=== PATIENT | male | born 1950 ===

== ENCOUNTER 2017-09-09 05:32 | Inpatient (IN) ==
[2017-09-02 09:42] LABS: Basophils # 0.1 10*3/uL (0.0-0.2); Basophils % 0.8 % (0.0-0.8); Eosinophils # 0.1 10*3/uL (0.0-0.87); Eosinophils % 1.9 % (0.00-10.9); Hematocrit 43.5 VOL% (42.0-52.0); Hemoglobin 14.8 GM/DL (14.0-18.0); Immature Granulocytes % 0.3 %; Immature Granulocytes Absolute 0.02 #; Lymphocytes # 2.4 10*3/uL (1.4-4.0); Lymphocytes % 32.7 % (21.2-54.2); Mean Corpuscular Hemoglobin 29 PG (27-34); Mean Platelet Volume 10.7 FL (9.6-12.0); Monocytes # 0.7 10*3/uL (0.11-0.8); Monocytes % 9.7 % (1.7-12.7); Neutrophils % 54.6 % (38.7-73.9); Platelet Count 263 T/CUMM (130-400); Red Blood Count 5.18 MC/CUMM (3.8-5.5); Red Cell Distribution Width 13.4 % (9.3-17.3); White Blood Count 7.3 T/CUMM (4-12)
[2017-09-02 10:34] LABS: Calcium 8.8 MG/DL (8.5-10.1); Osmolality,Calculated 276.5 MOS/KG (273-304); Potassium 4.5 MMOL/L (3.5-5.1)
[2017-09-02 10:41] LABS: Apearance,Urine CLEAR (Clear); Bilirubin,Urine Negative (Negative); Blood, Urine Negative (Negative); Glucose,Urine (UA) Negative (Negative); Ketones,Urine Negative (Negative); Nitrite,Urine Negative (Negative); Protein,Urine Negative; RBC,Urine <1 /HPF (0-4); Urine Color Straw (Yellow); Urine Specific Gravity 1.004 (1.001-1.035); Urine Urobilinogen < 2.0 EU/DL (0.2-1.0); WBC,Urine <1 /HPF (0-6)
[2017-09-09] MEDS ORDERED: SODIUM PHOSPHATE ENEMA 133 ML BOTTLE RECTAL ONE ×2 (05:58→06:00)
[2017-09-09] MEDS ORDERED: cefTRIAXone 1,000 MG VIAL ONE (05:58)
[2017-09-09] MEDS ORDERED: ALVIMOPAN 12 MG CAPSULE ONE (05:58)
[2017-09-09] MEDS ORDERED: ALVIMOPAN 12 MG CAPSULE PO ONE (06:00)
[2017-09-09] MEDS ORDERED: cefTRIAXone 1,000 MG in SYRINGE 1 EACH IV ONE (06:00)
[2017-09-09] MEDS: LACTATED RINGERS 1,000 ML IV SCH ×4 (06:33→11:30)
[2017-09-09] MEDS ORDERED: PROPOFOL 200 MG/20 ML VIAL IV ONE ×2 (07:10→11:59)
[2017-09-09] MEDS ORDERED: DEXAMETHASONE 10 MG/1 ML VIAL ONE (07:10)
[2017-09-09] MEDS ORDERED: GLYCOPYRROLATE 0.4 MG/2 ML VIAL ONE ×3 (07:10→12:00)
[2017-09-09] MEDS ORDERED: KETOROLAC 30 MG/1 ML VIAL ONE ×2 (07:10→12:00)
[2017-09-09] MEDS ORDERED: ROCURONIUM 100 MG/10 ML VIAL IV ONE ×2 (07:10→12:01)
[2017-09-09] MEDS ORDERED: LIDOCAINE 2% 5 ML VIAL ONE (07:10)
[2017-09-09] MEDS ORDERED: PHENYLEPHRINE 1 MG/10 ML SYRINGE IV ONE (07:10)
[2017-09-09] MEDS ORDERED: NEOSTIGMINE 10 MG/10 ML VIAL ONE ×2 (07:10→12:01)
[2017-09-09] MEDS ORDERED: ONDANSETRON 4 MG/2 ML VIAL ONE (07:10)
[2017-09-09 08:18] LABS: Apearance,Urine CLEAR (Clear); Bacteria,Urine Occasional /HPF (Few); Bilirubin,Urine Negative (Negative); Blood, Urine Small mg/dL (Negative); Glucose,Urine (UA) Negative (Negative); Ketones,Urine Negative (Negative); Mucus,Urine Occasional /LPF (Occasional); Nitrite,Urine Negative (Negative); Protein,Urine Negative; RBC,Urine 25 /HPF (0-4); Squamous Epithelial Cell,Urine Occasional /HPF (0-10); Urine Color Yellow (Yellow); Urine Specific Gravity 1.009 (1.001-1.035); Urine Urobilinogen < 2.0 EU/DL (0.2-1.0); WBC,Urine 3 /HPF (0-6)
[2017-09-09] MEDS ORDERED: ONDANSETRON 4 MG/2 ML VIAL IV PRN (11:33)
[2017-09-09] MEDS ORDERED: LACTULOSE 20 GM/30 ML UDCUP PO PRN (11:33)
[2017-09-09] MEDS ORDERED: DEXAMETHASONE 20 MG/5 ML VIAL ONE (12:00)
[2017-09-09] MEDS ORDERED: ePHEDrine 50 MG/ML AMP ONE (12:00)
[2017-09-09] MEDS ORDERED: HYDROmorphone PCA 30 MG/30 ML SYRINGE IV SCH (12:00)
[2017-09-09] MEDS ORDERED: MIDAZOLAM 2 MG/2 ML VIAL ONE (12:00)
[2017-09-09] MEDS ORDERED: ACETAMINOPHEN 1,000 MG/100 ML VIAL IV ONE (12:01)
[2017-09-09] MEDS ORDERED: SEVOFLURANE 1 UNIT/15 MINUTE INH ONE (12:02)
[2017-09-09] MEDS: SODIUM CHLORIDE 0.9% 1,000 ML IV SCH (14:20)
[2017-09-09] MEDS: ALVIMOPAN 12 MG CAPSULE PO SCH (21:22)
[2017-09-10] MEDS: SODIUM CHLORIDE 0.9% 1,000 ML IV SCH (06:33)
[2017-09-10] MEDS: ALVIMOPAN 12 MG CAPSULE PO SCH ×3 (07:55→21:08)
[2017-09-10] MEDS: OXYBUTYNIN XL 10 MG TABLET PO SCH ×2 (07:55→08:46)
[2017-09-11 06:39] LABS: Basophils % 0.4 % (0.0-0.8); Eosinophils # 0.2 10*3/uL (0.0-0.87); Eosinophils % 1.8 % (0.00-10.9); Hematocrit 35.5 VOL% (42.0-52.0); Hemoglobin 11.8 GM/DL (14.0-18.0); Immature Granulocytes % 0.2 %; Immature Granulocytes Absolute 0.02 #; Lymphocytes # 2.6 10*3/uL (1.4-4.0); Lymphocytes % 26.6 % (21.2-54.2); Mean Corpuscular HGB Conc 33.2 GM/DL (32-36); Mean Corpuscular Hemoglobin 28 PG (27-34); Mean Corpuscular Volume 85.3 FL (87-102); Mean Platelet Volume 11.4 FL (9.6-12.0); Monocytes # 1.3 10*3/uL (0.11-0.8); Monocytes % 13.1 % (1.7-12.7); Neutrophils # 5.7 10*3/uL (1.4-7.4); Neutrophils % 57.9 % (38.7-73.9); Platelet Count 209 T/CUMM (130-400); Red Blood Count 4.16 MC/CUMM (3.8-5.5); Red Cell Distribution Width 14.3 % (9.3-17.3); White Blood Count 9.9 T/CUMM (4-12)
[2017-09-11 07:09] LABS: Calcium 8.2 MG/DL (8.5-10.1); Osmolality,Calculated 282.1 MOS/KG (273-304); Potassium 3.7 MMOL/L (3.5-5.1)
[2017-09-11 07:52] VITALS: BP 124/66
[2017-09-11] MEDS: ALVIMOPAN 12 MG CAPSULE PO SCH (09:35)
[2017-09-11] MEDS: OXYBUTYNIN XL 10 MG TABLET PO SCH (09:35)
== END 2017-09-11 10:30 | disposition home or self-care (01) | DRG 708 ==
LOC: N.OR 05:32 → N.SDSINP 05:34 → N.5E 11:33
PROVIDERS: ADMIT Urology; ATTEND Urology

== ENCOUNTER 2017-11-19 00:53 | Observation (INO) ==
[2017-11-19] MEDS ORDERED: DILTIAZEM 50 MG/10 ML VIAL IV ONE (01:12)
[2017-11-19] MEDS ORDERED: ONDANSETRON 4 MG/2 ML VIAL ONE (01:12)
[2017-11-19] MEDS ORDERED: ONDANSETRON 4 MG/2 ML VIAL IV STA (01:13)
[2017-11-19] MEDS ORDERED: DILTIAZEM 50 MG/10 ML VIAL IV STA (01:13)
[2017-11-19] MEDS ORDERED: METOPROLOL TARTRATE 5 MG/5 ML VIAL IV ONE (01:24)
[2017-11-19] MEDS ORDERED: METOPROLOL TARTRATE 5 MG/5 ML VIAL IV STA (01:34)
[2017-11-19 01:39] LABS: Basophils # 0.1 10*3/uL (0.0-0.2); Basophils % 0.8 % (0.0-0.8); Eosinophils # 0.2 10*3/uL (0.0-0.87); Eosinophils % 2.1 % (0.00-10.9); Hemoglobin 15.4 GM/DL (14.0-18.0); Immature Granulocytes % 0.4 %; Immature Granulocytes Absolute 0.04 #; Lymphocytes # 2.9 10*3/uL (1.4-4.0); Lymphocytes % 28.7 % (21.2-54.2); Mean Corpuscular HGB Conc 33.5 GM/DL (32-36); Mean Corpuscular Hemoglobin 28 PG (27-34); Mean Corpuscular Volume 83.2 FL (87-102); Mean Platelet Volume 10.4 FL (9.6-12.0); Monocytes # 1.1 10*3/uL (0.11-0.8); Monocytes % 10.4 % (1.7-12.7); Neutrophils # 5.8 10*3/uL (1.4-7.4); Neutrophils % 57.6 % (38.7-73.9); Platelet Count 293 T/CUMM (130-400); Red Blood Count 5.53 MC/CUMM (3.8-5.5); Red Cell Distribution Width 13.3 % (9.3-17.3); White Blood Count 10.1 T/CUMM (4-12)
[2017-11-19 02:11] LABS: Troponin I Only 0.037 NG/ML (0.00-0.045)
[2017-11-19 02:18] LABS: Bilirubin,Total 0.4 MG/DL (0.2-1.0); Calcium 9.5 MG/DL (8.5-10.1); Osmolality,Calculated 282.3 MOS/KG (273-304); Thyroid Stimulating Hormone 5.85 uIU/ml (0.358-3.74)
[2017-11-19] MEDS ORDERED: MAGNESIUM SULF RIDER 4 GM in PREMIX 1 EACH IV PRN (02:47)
[2017-11-19] MEDS ORDERED: MAGNESIUM SULF RIDER 2 GM in PREMIX 1 EACH IV PRN (02:47)
[2017-11-19] MEDS ORDERED: ENOXAPARIN 40 MG/0.4 ML SYRINGE SUBCUT SCH (09:00)
[2017-11-19] MEDS ORDERED: METOPROLOL TARTRATE 25 MG TABLET PO SCH (11:00)
[2017-11-19 15:44] VITALS: BP 120/57
[2017-11-20] MEDS ORDERED: RIVAROXABAN 20 MG TABLET PO SCH (09:00)
[2017-11-20] MEDS ORDERED: RIVAROXABAN 10 MG TABLET PO SCH (09:00)
== END 2017-11-19 17:45 | disposition home or self-care (01) ==
LOC: N.ED 00:53 → INTOOBSV 02:47 → N.EDINP 02:47 → N.TELES 03:38
PROVIDERS: ADMIT Internal Medicine Clinical Cardiac Electrophysiology; ATTEND Internal Medicine Clinical Cardiac Electrophysiology

== ENCOUNTER 2017-12-29 04:30 | Inpatient (IN) ==
[2017-12-29] MEDS ORDERED: DILTIAZEM 50 MG/10 ML VIAL IV STA (05:02)
[2017-12-29 05:17] LABS: Basophils # 0.1 10*3/uL (0.0-0.2); Basophils % 0.6 % (0.0-0.8); Eosinophils # 0.2 10*3/uL (0.0-0.87); Eosinophils % 2.1 % (0.00-10.9); Hematocrit 45.2 VOL% (42.0-52.0); Hemoglobin 15.1 GM/DL (14.0-18.0); Immature Granulocytes % 0.3 %; Immature Granulocytes Absolute 0.03 #; Lymphocytes # 3.1 10*3/uL (1.4-4.0); Lymphocytes % 31.9 % (21.2-54.2); Mean Corpuscular HGB Conc 33.4 GM/DL (32-36); Mean Corpuscular Hemoglobin 28 PG (27-34); Mean Platelet Volume 10.7 FL (9.6-12.0); Monocytes # 0.9 10*3/uL (0.11-0.8); Monocytes % 9.6 % (1.7-12.7); Neutrophils # 5.4 10*3/uL (1.4-7.4); Neutrophils % 55.5 % (38.7-73.9); Platelet Count 261 T/CUMM (130-400); Red Blood Count 5.32 MC/CUMM (3.8-5.5); Red Cell Distribution Width 13.9 % (9.3-17.3); White Blood Count 9.8 T/CUMM (4-12)
[2017-12-29] MEDS ORDERED: DILTIAZEM 100 MG VIAL.ADD IV ONE (05:26)
[2017-12-29] MEDS ORDERED: SODIUM CHLORIDE 0.9% 100 ML IV ONE (05:27)
[2017-12-29] MEDS ORDERED: DILTIAZEM 25 MG/5 ML VIAL IV STA (05:27)
[2017-12-29] MEDS ORDERED: SODIUM CHLORIDE 0.9% 1,000 ML IV STA (05:41)
[2017-12-29 05:44] LABS: Alanine Aminotransferase 25 U/L (16-61); Albumin 3.8 G/DL (3.4-5.0); Alkaline Phosphatase 94 U/L (45-117); Aspartate Amino Transferase 20 U/L (0-37); Blood Urea Nitrogen 14 MG/DL (7-18); Glucose 110 MG/DL (74-106); Potassium 4.1 MMOL/L (3.5-5.1); Sodium 143 MMOL/L (136-145); Total Protein 6.9 G/DL (6.4-8.3); Troponin I Only < 0.015 NG/ML (0.00-0.045)
[2017-12-29] MEDS: DILTIAZEM INJ 100 MG in SODIUM CHLORIDE 0.9% 100 ML IV SCH (05:44)
[2017-12-29] MEDS ORDERED: MAGNESIUM SULF RIDER 2 GM in PREMIX 1 EACH IV PRN (06:05)
[2017-12-29] MEDS ORDERED: MAGNESIUM SULF RIDER 4 GM in PREMIX 1 EACH IV PRN (06:05)
[2017-12-29] MEDS: SODIUM CHLORIDE 0.9% 1,000 ML IV SCH ×2 (07:05→21:19)
[2017-12-29] MEDS ORDERED: ceFAZolin 1,000 MG VIAL IRRIG ONE (07:54)
[2017-12-29] MEDS ORDERED: ceFAZolin 1,000 MG in SYRINGE 1 EACH IV ONE (07:54)
[2017-12-29] MEDS ORDERED: ASPIRIN CHEW 81 MG TABLET PO ONE (08:35)
[2017-12-29] MEDS: ASPIRIN EC 81 MG TABLET PO SCH (08:45)
[2017-12-29] MEDS ORDERED: SOTALOL 80 MG TABLET ONE (09:51)
[2017-12-29] MEDS: SOTALOL 80 MG TABLET PO SCH ×2 (09:52→20:54)
[2017-12-29] MEDS: OMEGA 3 ACID ETHYL ESTERS 1 GM CAPSULE PO SCH (09:53)
[2017-12-29] MEDS: MULTIVITAMIN (CENTRUM) TABLET PO SCH (09:53)
[2017-12-29] MEDS: LOSARTAN/HCTZ 50-12.5 MG TABLET PO SCH (09:54)
[2017-12-29] MEDS ORDERED: LOSARTAN/HCTZ 50-12.5 MG TABLET PO ONE (10:30)
[2017-12-29] MEDS ORDERED: BISACODYL 5 MG TABLET PO PRN (16:57)
[2017-12-29] MEDS ORDERED: ZALEPLON 5 MG CAPSULE PO PRN (16:57)
[2017-12-29] MEDS ORDERED: diphenhydrAMINE CAP 25 MG CAPSULE PO PRN (16:57)
[2017-12-29] MEDS ORDERED: ONDANSETRON 4 MG/2 ML VIAL IV PRN (16:57)
[2017-12-29] MEDS ORDERED: ACETAMINOPHEN 500 MG TABLET PO PRN (16:58)
[2017-12-29] MEDS: DOCUSATE SODIUM 100 MG CAPSULE PO SCH (20:54)
[2017-12-29] MEDS: PSYLLIUM POWDER 3.7 GM/PACK PO SCH (21:18)
[2017-12-30 05:38] LABS: Basophils # 0.1 10*3/uL (0.0-0.2); Basophils % 0.8 % (0.0-0.8); Eosinophils # 0.3 10*3/uL (0.0-0.87); Hematocrit 42.3 VOL% (42.0-52.0); Hemoglobin 14.5 GM/DL (14.0-18.0); Immature Granulocytes % 0.2 %; Immature Granulocytes Absolute 0.02 #; Lymphocytes # 2.9 10*3/uL (1.4-4.0); Lymphocytes % 34.1 % (21.2-54.2); Mean Corpuscular HGB Conc 34.3 GM/DL (32-36); Mean Corpuscular Hemoglobin 28 PG (27-34); Mean Corpuscular Volume 82.6 FL (87-102); Mean Platelet Volume 10.9 FL (9.6-12.0); Monocytes # 0.8 10*3/uL (0.11-0.8); Monocytes % 9.2 % (1.7-12.7); Neutrophils # 4.6 10*3/uL (1.4-7.4); Neutrophils % 52.7 % (38.7-73.9); Platelet Count 239 T/CUMM (130-400); Red Blood Count 5.12 MC/CUMM (3.8-5.5); Red Cell Distribution Width 13.9 % (9.3-17.3); White Blood Count 8.6 T/CUMM (4-12)
[2017-12-30 05:57] LABS: Calcium 8.4 MG/DL (8.5-10.1); Osmolality,Calculated 283.1 MOS/KG (273-304); Potassium 3.9 MMOL/L (3.5-5.1)
[2017-12-30] MEDS: SODIUM CHLORIDE 0.9% 1,000 ML IV SCH ×2 (06:37→06:48)
[2017-12-30] MEDS: DILTIAZEM INJ 100 MG in SODIUM CHLORIDE 0.9% 100 ML IV SCH (06:38)
[2017-12-30] MEDS: OMEGA 3 ACID ETHYL ESTERS 1 GM CAPSULE PO SCH (08:09)
[2017-12-30] MEDS: LOSARTAN/HCTZ 50-12.5 MG TABLET PO SCH (08:10)
[2017-12-30] MEDS: SOTALOL 80 MG TABLET PO SCH ×2 (08:10→20:40)
[2017-12-30] MEDS: MULTIVITAMIN (CENTRUM) TABLET PO SCH (08:11)
[2017-12-30] MEDS: ASPIRIN EC 81 MG TABLET PO SCH (08:11)
[2017-12-30] MEDS ORDERED: ceFAZolin 1,000 MG in SYRINGE 1 EACH IV ONE (08:30)
[2017-12-30] MEDS ORDERED: ceFAZolin 1,000 MG VIAL IRRIG ONE (08:30)
[2017-12-30] MEDS ORDERED: HEPARIN/NACL 0.9% 2 UNITS/ML 1,000 ML IV ONE (09:36)
[2017-12-30] MEDS ORDERED: LIDOCAINE 1% 20 ML VIAL ONE ×2 (09:36→09:46)
[2017-12-30] MEDS ORDERED: ceFAZolin 1,000 MG VIAL ONE (09:50)
[2017-12-30] MEDS ORDERED: MIDAZOLAM 2 MG/2 ML VIAL ONE ×2 (09:59→10:07)
[2017-12-30] MEDS ORDERED: fentaNYL 100 MCG/2 ML VIAL ONE ×2 (09:59→10:07)
[2017-12-30] MEDS ORDERED: TISSUE ADHESIVE 1 EACH APPLICATOR TOP ONE (10:32)
[2017-12-30] MEDS ORDERED: ACETAMINOPHEN 325 MG TABLET PO PRN (10:54)
[2017-12-30] MEDS ORDERED: SILDENAFIL 20 MG TABLET PO PRN (10:58)
[2017-12-30] MEDS: DILTIAZEM CD 120 MG CAPSULE PO SCH (18:18)
[2017-12-30] MEDS: ceFAZolin 1,000 MG in SYRINGE 1 EACH IV SCH (20:06)
[2017-12-30] MEDS: DOCUSATE SODIUM 100 MG CAPSULE PO SCH (20:39)
[2017-12-30] MEDS: ASCORBIC ACID 500 MG TABLET PO SCH (20:40)
[2017-12-30] MEDS: PSYLLIUM POWDER 3.7 GM/PACK PO SCH (20:41)
[2017-12-30] MEDS ORDERED: PSYLLIUM POWDER 3.7 GM/PACK PO SCH (21:00)
[2017-12-31] MEDS: ceFAZolin 1,000 MG in SYRINGE 1 EACH IV SCH (00:54)
[2017-12-31 05:42] LABS: Basophils # 0.1 10*3/uL (0.0-0.2); Basophils % 0.5 % (0.0-0.8); Eosinophils # 0.3 10*3/uL (0.0-0.87); Eosinophils % 2.7 % (0.00-10.9); Hematocrit 40.6 VOL% (42.0-52.0); Hemoglobin 13.9 GM/DL (14.0-18.0); Immature Granulocytes % 0.2 %; Immature Granulocytes Absolute 0.02 #; Lymphocytes # 2.9 10*3/uL (1.4-4.0); Lymphocytes % 29.5 % (21.2-54.2); Mean Corpuscular HGB Conc 34.2 GM/DL (32-36); Mean Corpuscular Hemoglobin 28 PG (27-34); Mean Corpuscular Volume 81.7 FL (87-102); Mean Platelet Volume 10.6 FL (9.6-12.0); Monocytes # 0.9 10*3/uL (0.11-0.8); Monocytes % 9.5 % (1.7-12.7); Neutrophils # 5.6 10*3/uL (1.4-7.4); Neutrophils % 57.6 % (38.7-73.9); Platelet Count 226 T/CUMM (130-400); Red Blood Count 4.97 MC/CUMM (3.8-5.5); White Blood Count 9.7 T/CUMM (4-12)
[2017-12-31 06:20] LABS: Calcium 8.4 MG/DL (8.5-10.1); Osmolality,Calculated 277.5 MOS/KG (273-304); Potassium 3.5 MMOL/L (3.5-5.1)
[2017-12-31 06:23] LABS: Calcium 8.4 MG/DL (8.5-10.1); Osmolality,Calculated 273.8 MOS/KG (273-304); Potassium 3.5 MMOL/L (3.5-5.1)
[2017-12-31] MEDS: SOTALOL 80 MG TABLET PO SCH (08:42)
[2017-12-31] MEDS: ASPIRIN EC 81 MG TABLET PO SCH (08:42)
[2017-12-31] MEDS: OMEGA 3 ACID ETHYL ESTERS 1 GM CAPSULE PO SCH (08:43)
[2017-12-31] MEDS: DILTIAZEM CD 120 MG CAPSULE PO SCH (08:44)
[2017-12-31] MEDS: MULTIVITAMIN (CENTRUM) TABLET PO SCH (08:44)
[2017-12-31] MEDS: LOSARTAN/HCTZ 50-12.5 MG TABLET PO SCH (08:44)
[2017-12-31] MEDS: ASCORBIC ACID 500 MG TABLET PO SCH (08:45)
[2017-12-31] MEDS ORDERED: SENNA 8.6 MG TABLET PO SCH (09:00)
[2017-12-31 11:48] VITALS: BP 105/61
== END 2017-12-31 16:39 | disposition home or self-care (01) | DRG 244 ==
LOC: N.ED 04:30 → N.EDINP 06:05 → N.TELES 12:54
PROVIDERS: ADMIT Internal Medicine Clinical Cardiac Electrophysiology; ATTEND Internal Medicine Clinical Cardiac Electrophysiology